=== PATIENT | female | born 2000 | race Caucasian/White ===

== ENCOUNTER 2022-02-20 13:07 | Inpatient (IN) ==
[2022-02-20 11:23] LABS: Basophils # 0.1 K/mcL (0.0-0.2); Basophils % 0.7 %; Eosinophils # 0.1 K/mcL (0.0-0.6); Eosinophils % 1.4 %; Hematocrit 34.8 % (35.3-44.9); Hemoglobin 11.3 g/dL (11.5-15.4); Immature Granulocytes % 0.4 % (0-4); Lymphocytes # 1.9 K/mcL (0.6-4.6); Lymphocytes % 22.9 %; Mean Corpuscular HGB Conc 32.5 g/dL (31.6-35.5); Mean Corpuscular Hemoglobin 27.2 pg (28.0-33.3); Mean Corpuscular Volume 83.9 fL (83.0-100.0); Monocytes # 0.7 K/mcL (0.0-1.3); Neutrophils # 5.4 K/mcL (1.6-8.9); Platelet Count 313 K/mcL (140-400); Red Blood Count 4.15 M/mcL (3.82-4.97); Red Cell Distribution Width 12.7 % (11.5-14.5); Segmented Neutrophils % 66.6 %; White Blood Count 8.1 K/mcL (4.3-11.1)
[2022-02-20 11:31] LABS: Amphetamine Screen,Urine Negative ng/mL (Cutoff=1000); Barbiturate Screen,Urine Negative ng/mL (Cutoff=200); Benzodiazepines Screen,Urine Negative ng/mL (Cutoff=200); Cannabinoid Screen,Urine Negative ng/mL (Cutoff = 50); Cocaine Screen,Urine Negative ng/mL (Cutoff= 300); Opiate Screen,Urine Negative ng/mL (Cutoff=300); Phencyclidine Screen,Urine Negative ng/mL (Cutoff=25)
[~2022-02-20 13:07] MED LIST: *HR* FentaNYL (PF) 100 MCG/2 ML VIAL ONE; *HR* HYDROmorphone PF 0.5 MG/0.5 ML SYRINGE IVP PRN; *HR* Labetalol 20 MG/4 ML SYRINGE IVP PRN; *HR* Morphine Sulfate/PF 10 MG/10 ML AMPUL ONE; *HR* Nalbuphine 10 MG/ML AMPUL IV PRN; Acetaminophen IV 1,000 MG/100 ML BAG IVPB ONE; Azithromycin 500 MG in 0.9 % Sodium Chloride 250 ML IVPB PRN; CeFAZolin 2,000 MG/120 ML BAG IVPB ONE; EPHEDrine 50 MG/ML VIAL IVP PRN; EPHEDrine 50 MG/ML VIAL ONE; Epidural Premix (fent/bupiv) 110 ML EP SCH; Famotidine 20 MG/2 ML VIAL IVP ONE; Famotidine 20 MG/2 ML VIAL IVP PRN; Ketorolac 30 MG/ML VIAL ONE; Lidocaine 1% 20 ML MDV INFILT PRN; Metoclopramide 10 MG/2 ML VIAL IVP ONE; Metoclopramide 10 MG/2 ML VIAL IVP PRN; Ondansetron 4 MG/2 ML VIAL IVP PRN; Ondansetron 4 MG/2 ML VIAL ONE; Oxytocin 30 UNIT/503 ML BAG IVC ONE; Promethazine 6.25 MG in Water for inj. (sterile) 20 ML IVPB PRN; Ringers Solution, Lactated 1,000 ML IVC SCH; Ringers Solution, Lactated 1,000 ML ONE
[2022-02-20] MEDS ORDERED: Ringers Solution, Lactated 1,000 ML ONE (13:30)
[2022-02-20] MEDS ORDERED: *HR* Midazolam HCl 2 MG/2 ML VIAL ONE (13:31)
[2022-02-20] MEDS ORDERED: Ondansetron 4 MG/2 ML VIAL IVP PRN (16:27)
[2022-02-20] MEDS ORDERED: Ringers Solution, Lactated 1,000 ML IVC SCH (16:27)
[2022-02-20] MEDS ORDERED: Oxytocin 30 UNIT/503 ML BAG IVC SCH (16:27)
[2022-02-20] MEDS ORDERED: Metoclopramide 10 MG/2 ML VIAL IVP PRN (16:27)
[2022-02-20] MEDS ORDERED: Rho Immune Globulin 1,500 UNIT SYRINGE IM ONE (16:27)
[2022-02-20] MEDS: Acetaminophen 325 MG TABLET PO SCH (17:50)
[2022-02-20] MEDS: Ibuprofen 600 MG TABLET PO SCH (17:50)
[2022-02-20] MEDS: *HR* OxyCODONE Immed Rel 5 MG TABLET PO PRN (19:37)
[2022-02-21] MEDS: *HR* OxyCODONE Immed Rel 5 MG TABLET PO PRN ×5 (01:27→22:17)
[2022-02-21] MEDS: Ibuprofen 600 MG TABLET PO SCH ×4 (01:28→20:19)
[2022-02-21] MEDS: Acetaminophen 325 MG TABLET PO SCH ×4 (01:28→20:18)
[2022-02-21 06:28] LABS: Basophils # 0.1 K/mcL (0.0-0.2); Basophils % 0.3 %; Eosinophils # 0.1 K/mcL (0.0-0.6); Eosinophils % 0.3 %; Hemoglobin 9.5 g/dL (11.5-15.4); Immature Granulocytes % 0.5 % (0-4); Lymphocytes # 2.9 K/mcL (0.6-4.6); Lymphocytes % 19.2 %; Mean Corpuscular HGB Conc 32.8 g/dL (31.6-35.5); Mean Corpuscular Hemoglobin 27.5 pg (28.0-33.3); Mean Corpuscular Volume 83.8 fL (83.0-100.0); Mean Platelet Volume 9.9 fL (9.4-12.4); Monocytes % 6.3 %; Neutrophils # 11.2 K/mcL (1.6-8.9); Platelet Count 340 K/mcL (140-400); Red Blood Count 3.46 M/mcL (3.82-4.97); Red Cell Distribution Width 12.9 % (11.5-14.5); Segmented Neutrophils % 73.4 %; White Blood Count 15.3 K/mcL (4.3-11.1)
[2022-02-21] MEDS: Prenatal Vit/FA 1 EACH TABLET PO SCH (08:12)
[2022-02-21] MEDS ORDERED: *HR* OxyCODONE Immed Rel 5 MG TABLET PO ONE (18:35)
[2022-02-21] MEDS: Simethicone 80 MG TAB.CHEW PO PRN (20:22)
[2022-02-22] MEDS: Ibuprofen 600 MG TABLET PO SCH ×4 (03:19→23:32)
[2022-02-22] MEDS: Acetaminophen 325 MG TABLET PO SCH ×4 (03:20→23:32)
[2022-02-22] MEDS: *HR* OxyCODONE Immed Rel 5 MG TABLET PO PRN ×4 (06:07→19:13)
[2022-02-22] MEDS: Simethicone 80 MG TAB.CHEW PO PRN (08:56)
[2022-02-22] MEDS: Prenatal Vit/FA 1 EACH TABLET PO SCH (08:57)
[2022-02-22 17:22] LABS: Bilirubin,Urine Negative (Negative); Blood,Urine Moderate (Negative); Clarity,Urine Clear (Clear); Color,Urine Light-Yellow (Yellow); Glucose,Urine (UA) Normal (Normal); Ketones,Urine Negative (Negative); Leukocyte Esterase,Urine Trace (Negative); Mucus,Urine Few per lpf (None-Few); Nitrite,Urine Negative (Negative); Protein,Urine Negative (Neg-Trace); RBC,Urine 30-50 per hpf (0-3); Specific Gravity,Urine 1.012 (1.010-1.025); Squamous Epithelial Cell,Urine Few per hpf (None-Few); Urobilinogen,Urine Normal (Normal)
[2022-02-22 19:49] VITALS: O2SAT 100
[2022-02-23] MEDS: *HR* OxyCODONE Immed Rel 5 MG TABLET PO PRN ×2 (00:46→05:31)
[2022-02-23] MEDS: Acetaminophen 325 MG TABLET PO SCH ×2 (05:25→12:27)
[2022-02-23] MEDS: Ibuprofen 600 MG TABLET PO SCH ×2 (05:25→12:28)
[2022-02-23 07:33] VITALS: BP 111/71; TEMP 97.8
[2022-02-23] MEDS: Prenatal Vit/FA 1 EACH TABLET PO SCH (08:00)
[2022-02-23 09:52] VITALS: PULSE 82
== END 2022-02-23 12:49 | disposition home or self-care (01) | DRG 788 ==
LOC: 1NENULAB → 1NENUOBS 16:22
PROVIDERS: ADMIT Student in an Organized Health Care Education/Training Program; ATTEND Student in an Organized Health Care Education/Training Program